=== PATIENT | female | born 1965 | race Caucasian/White ===

== ENCOUNTER → 2017-06-04 | Outpatient (CLI) | payer OTHER ==
[~2017-06-04] MED LIST: ARMOUR THYROID30 M1 PO; ERYTHROMYCIN E3.5 G2 OP; FOLTX TABLET1 EAC1 PO; NEPHROCAPS SOFT1 CAP PO; PERCOCET 5-3251 EACH PO; SYNTHROID100 MCG PO; VITAMIN D 5050000 I1 PO; WELLBUTRIN75 MG PO; ZINC50 MG PO
== END ==
LOC: CAT 08:57
DX: K57.32 Diverticulitis of large intestine without perforation or abscess without bleeding (principal)

== ENCOUNTER 2017-12-06 11:32 | Emergency (ER) | payer OTHER ==
[~2017-12-06] VITALS: Ht 160 cm; Wt 104.3 kg
--- NOTE | ~2017-12-06 | EKG ---
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: Cynthia HILL : 1965 Requested By: Marvel Gama Order Number: [id number] MD: Anton Gomes Measurements Intervals [place] Rate: 62 P: 47 CT: 156 QRS: 11 QRSD: 102 T: 31 QT: 419 QTc: 426 Interpretive Statements Sinus rhythm Abnormal R-wave progression, early transition Compared to ECG 01/08/2000 16:49:54 No significant change was found Electronically Signed On 12-06-2017 15:33:47 [employer] by Anton Gomes [email or web address] <ELECTRONICALLY SIGNED> By: Anton Gomes MD, [facility] 12/06/17 1533 1223 1223 Anton Gomes MD, FAC /EPI
[2017-12-06 12:19] LABS: ABSOLUTE NEUTROPHILS 4.9 thou/uL (1.4-8.2); BASOPHILS 0.7 % (0.0-2.0); EOSINOPHILS 3.2 % (0.0-3.0); HEMATOCRIT 36.7 % (37.0-47.0); HEMOGLOBIN 12.6 gm/dL (12.0-15.0); LYMPHOCYTES 12.9 % (24.0-44.0); MCH 29.8 pg (26.0-34.0); MCHC 34.2 g/dL (28.0-37.0); MCV 87.1 fL (80.0-100.0); MONOCYTES 4.9 % (1.0-8.0); PLATELET COUNT 293 thou/uL (150-400); POLYS 78.3 % (36.0-66.0); RBC 4.21 mil/uL (4.20-5.00); RDW 13.8 % (10.5-14.5); WBC 6.3 thou/uL (4.0-11.0)
[2017-12-06 12:25] LABS: ANION GAP 8 mmol/L (7-16); BUN 16 mg/dL (7-18); CHLORIDE 105 mmol/L (98-107); CO2 24 mmol/L (21-32); GLUCOSE 284 mg/dL (74-106); POTASSIUM 4.1 mmol/L (3.5-5.1); SODIUM 137 mmol/L (136-145)
[2017-12-06 12:32] LABS: ALBUMIN 3.6 g/dL (3.4-5.0); LIPASE 193 U/L (73-393); SGOT 17 U/L (15-37); SGPT 28 U/L (30-65); TOTAL BILIRUBIN 0.2 mg/dL (<0.1-1.0); TROPONIN-I < 0.04 ng/mL (<0.06)
[2017-12-06] MEDS ORDERED: FLOMAX0.4 MG PO (13:28)
[2017-12-06] MEDS ORDERED: TORADOL 10 MG T10 MG PO (13:28)
[2017-12-06 13:55] VITALS: BP 124/78
[2018-07-01] MEDS ORDERED: GLUCOPHAGE XR500 MG PO (09:47)
[2018-07-01] MEDS ORDERED: FARXIGA5 MG PO (09:48)
[2018-07-01] MEDS ORDERED: PHENTERMINE H37.5 M1 PO (09:48)
[2018-07-01] MEDS ORDERED: UNICOMPLEX M TA1 TA1 PO (09:50)
[2018-07-06] MEDS ORDERED: PROTONIX40 M1 PO (13:00)
== END 2017-12-06 13:56 | disposition home or self-care (01) ==
LOC: ER 11:32
PROVIDERS: Emergency Medicine
DX: N20.1 Calculus of ureter (principal); R73.9 Hyperglycemia, unspecified; Z88.0 Allergy status to penicillin; Z88.6 Allergy status to analgesic agent

== ENCOUNTER 2019-06-13 06:40 | Emergency (ER) | payer OTHER ==
[~2019-06-13] VITALS: Ht 160 cm; Wt 103.0 kg
[~2019-06-13 06:40] MED LIST changes: +FARXIGA5 MG PO; +FLOMAX0.4 MG PO; +GLUCOPHAGE XR500 MG PO; +PHENTERMINE H37.5 M1 PO; +PROTONIX40 M1 PO; +TORADOL 10 MG T10 MG PO; +UNICOMPLEX M TA1 TA1 PO
[2019-06-13 07:13] LABS: URINE BILIRUBIN NEGATIVE (Negative); URINE BLOOD 2+ (Negative); URINE CLARITY CLOUDY; URINE COLOR YELLOW; URINE GLUCOSE-RANDOM* NEGATIVE (Negative); URINE KETONES NEGATIVE (Negative); URINE LEUKOCYTES-REFLEX NEGATIVE (Negative); URINE NITRITE-REFLEX NEGATIVE (Negative); URINE PROTEIN (DIPSTICK) TRACE (Negative); URINE SPECIFIC GRAVITY 1.015 (1.005-1.035); URINE UROBILINOGEN 0.2 E.U./dl (0.2-1.0)
[2019-06-13 07:18] LABS: HEMATOCRIT 38.8 % (37.0-47.0); HEMOGLOBIN 13.2 gm/dL (12.0-15.0); MCV 88.1 fL (80.0-100.0); PLATELET COUNT 360 thou/uL (150-400); WBC 7.2 thou/uL (4.0-11.0)
[2019-06-13 07:26] LABS: CALCIUM 9.6 mg/dL (8.5-10.1); CREATININE 0.9 mg/dL (0.6-1.0); POTASSIUM 4.2 mmol/L (3.5-5.1)
[2019-06-13 07:33] LABS: ALBUMIN 3.9 g/dL (3.4-5.0); TOTAL BILIRUBIN 0.3 mg/dL (<0.1-1.0); TOTAL PROTEIN 7.8 g/dL (6.4-8.2)
[2019-06-13] MEDS ORDERED: NAPROSYN500 MG PO (08:01)
[2019-06-13] MEDS ORDERED: NORCO 5-325 TA1 EAC1 PO (08:01)
--- NOTE | 2019-06-13 08:01 | EKG ---
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: : 1965 Requested By: Jabari Saldana Order Number: [id number] MD: Anton Gomes Measurements Intervals [place] Rate: 73 P: 43 IA: 165 QRS: 21 QRSD: 98 T: 49 QT: 404 QTc: 446 Interpretive Statements Sinus rhythm RSR' in V1 or V2, right VCD Compared to ECG 06/30/2018 16:32:46 RSR' in V1 or V2 now present Electronically Signed On 06-13-2019 8:01:27 CDT by Anton Gomes [email or web address] <ELECTRONICALLY SIGNED> By: Anton Gomes MD, [facility] 06/13/19 08 0654 0654 Anton Gomes MD, [facility] /EPI
[2019-06-13] MEDS ORDERED: ONDANSETRON HCL4 M2 PO (08:21)
[2019-06-13 08:24] VITALS: BP 157/83
[2019-06-13 08:33] LABS: BACTERIA-REFLEX 1-9 Few /HPF (None Seen); CASTS None Seen /LPF (None Seen); SQUAMOUS 0-3 Few /LPF (0-3); URINE RBC 3-10 Few /HPF (0-2); URINE WBC-REFLEX 0-5 Rare /HPF (0-5)
[2019-06-13 08:34] LABS: AMORPHOUS PHOSPHATES Moderate /LPF (None Seen)
[2019-06-13 08:38] LABS: ABSOLUTE NEUTROPHILS 4.7 thou/uL (1.4-8.2)
== END 2019-06-13 08:24 | disposition home or self-care (01) ==
LOC: ER 06:40
PROVIDERS: Emergency Medicine
DX: N20.0 Calculus of kidney (principal); E03.9 Hypothyroidism, unspecified; Z90.49 Acquired absence of other specified parts of digestive tract; Z88.0 Allergy status to penicillin; Z88.6 Allergy status to analgesic agent